=== PATIENT | female | born 1960 | race Caucasian/White ===

== ENCOUNTER 2018-11-12 06:13 | Inpatient (IN) | payer OTHER ==
[2018-11-11 10:35] VITALS: Ht 170.2 cm; Wt 72.7 kg
[2018-11-12] VITALS (28 sets, daily range): BP systolic 82–134; BP diastolic 48–74; PULSE 82–120; RESP 13–18
[~2018-11-12] VITALS: Ht 170.2 cm; Wt 72.7 kg
[2018-11-12] MEDS ORDERED: LEVO112T57 PO (06:58)
[2018-11-12] MEDS ORDERED: SEVOFLURANE 15 MIN ONE (07:00)
[2018-11-12] MEDS ORDERED: GELATIN SIZE 100 SPONGE ONE ×2 (07:39→10:03)
[2018-11-12] MEDS ORDERED: THROMBIN (BOVINE) 5,000 UNIT VIAL TP ONE ×4 (07:40→13:36)
[2018-11-12] MEDS ORDERED: BUPIVACAINE 0.5%/EPI (SDV) 30 ML INJ ONE (07:40)
[2018-11-12] MEDS ORDERED: HEPARIN 1000 UNITS/ML 10 ML INJ ONE (07:40)
[2018-11-12] MEDS ORDERED: THROMBIN 5000 UNIT VIAL TOP ONE ×2 (07:40→13:45)
[2018-11-12] MEDS ORDERED: CEFAZOLIN 1 GM INJ ONE ×2 (07:40→15:22)
--- NOTE | 2018-11-12 07:45 | HPN ---
Date/Time of Note Date/Time of Note DATE: 11/12/18 TIME: 07:45 Interval H&P Admission Note Pt. seen H&P reviewed: No system changes MARTHA JJ MD Nov 12, 2018 07:45
--- NOTE | 2018-11-12 08:03 | PREAC ---
Date/Time of Note Date/Time of Note DATE: 11/12/18 TIME: 08:00 Anesthesia Eval and Record Evaluation Time Pre-Procedure Interview DATE: 11/12/18 TIME: 08:00 Age 58 Sex female NPO: 8 hrs Preoperative diagnosis Spondylolesthesis Planned procedure anterior approach L4-5 Fusion Past Medical History Past Medical History: None Surgery & Anesthesia Issues No known issue Meds Anticoagulation: No Beta Radha within 24 hr: No Reason Beta Radha not given: Pt. not on B-Radha Reported Medications Levothyroxine Sodium* (Levothyroxine Sodium*) 112 Mcg Tablet, 112 MCG PO BEFORE BREAKFAST, #30 TAB 11/12/18 Meds reviewed: Yes Allergies Coded Allergies: No Known Allergy (Unverified , 11/11/18) Allergies Reviewed: Yes Labs/Studies Labs Reviewed: Reviewed by anesthesiologist Blood Bank Test 11/12/18 06:20 Antibody Screen NEGATIVE Blood Product Summary Counts Blood Type O POSITIVE Crossmatch Red Blood Cells test: Negative Studies: ECG Pre-procedure Exam Last vitals Vital Signs Date Temp Pulse Resp B/P (MAP) Pulse Ox O2 O2 Flow FiO2 Time Delivery Rate 11/12/18 98.1 89 17 97/74 (82) 96 Room Air 06:54 Airway: Adequate mouth opening, Adequate thyromental dist Mallampati: Mallampati II Teeth: Normal Lung: Normal Heart: Normal ASA Physical Status ASA physical status: 2 Emergency: None Planned Anesthetic General/MAC: ETT Planned Pain Management Parenteral pain med, Local by surgeon Pre-operative Attestations Prior to commencing anesthesia and surgery, the patient was re-evaluated, there was verification of: *The patient's identity *The results of appropriate recent lab work and preoperative vital signs *The above evaluation not changing prior to induction *Anesthetic plan, risk benefits, alternative and complications discussed with patient/family; questions answered; patient/family understands, accepts and wishes to proceed. JEANINE LOCKETT MD Nov 12, 2018 08:03
[2018-11-12] MEDS ORDERED: MIDAZOLAM 1 MG/ML 2 ML INJ ONE (08:08)
[2018-11-12] MEDS ORDERED: PHENYLephrine 10 MG INJ ONE (08:19)
[2018-11-12] MEDS ORDERED: morphine 10 MG INJ ONE (12:47)
[2018-11-12] MEDS ORDERED: POLYMYXIN/BACITRACIN 1L IRRIG ONE (13:39)
[2018-11-12] MEDS ORDERED: POLYMYXIN/BACITRACIN 1L IRRIG IRR ONE (13:50)
[2018-11-12] MEDS ORDERED: ROCURONIUM 50 MG INJ ONE (15:19)
[2018-11-12] MEDS ORDERED: PROPOFOL 20 ML ONE (15:19)
[2018-11-12] MEDS ORDERED: LIDOCAINE 2% (SDV) 5 ML INJ ONE (15:19)
[2018-11-12] MEDS ORDERED: METOCLOPRAMIDE 10 MG INJ ONE (15:23)
[2018-11-12] MEDS ORDERED: ONDANSETRON 4 MG INJ ONE (15:23)
[2018-11-12] MEDS ORDERED: DEXAMETHASONE 4 MG/ML 5 ML INJ ONE (15:57)
--- NOTE | 2018-11-12 16:18 | OPR ---
Date/Time of Note Date/Time of Note DATE: 11/12/18 TIME: 16:05 Operative Report Free Text/Dictation DATE OF OPERATION: 11/12/2018 PREOPERATIVE DIAGNOSES: 1. L4-5 spondylolisthesis with severe spinal stenosis with bilateral L4 and L5 radiculopathy 2. L4-5 right sided synovial facet cyst with L5 radiculopathy POSTOPERATIVE DIAGNOSES: 1. L4-5 spondylolisthesis with severe spinal stenosis with bilateral L4 and L5 radiculopathy 2. L4-5 right sided synovial facet cyst with L5 radiculopathy OPERATION PERFORMED: 1. Anterior lumbar interbody fusion L4-5 2. Placement of anterior interbody device L4-5 3. Placement of posterior spinal segmental instrumentation L4-5 4. Posterior spinal fusion L4-5 5.Bilateral L4-5 laminectomy, medial facetectomy and foraminotomy 6. Excision of right sided L4-5 synovial facet cyst 7. Interpretation of neuromonitoring SURGEON: Martha Jj MD Vascular surgeon: Vince Sparrow MD ANESTHESIA: General endotracheal ESTIMATED BLOOD LOSS: 250 cc SURGICAL INDICATION: The patient is a 58 year-old woman who presents with an i ncreasing history of back and bilateral leg pain. The patient was found to have an unstable spondylolisthesis at L4-5 with associated stenosis and a right sided L4-5 synovial facet cyst. The patient had failed conservative treatments. Risks, benefits and alternatives to an anterior and posterior spinal fusion with instrumentation and decompression with cyst excision were explained to the patient including but not exclusive of bleeding, infection, visceral injury, nerve injury, nonunion, instrumentation failure, lack of symptom relief, myocardial infarction, stroke, and pulmonary embolism, and they wished to proceed. DESCRIPTION OF TECHNIQUE: The patient was identified in the preoperative area and taken to the operating room. Rapid induction of general endotracheal anesthesia was performed. Patient wasgiven 2 grams of IV ancef for infection prophylaxis. The patient was positioned in the supine position on the operative table. All bony prominences were well padded. The patient's abdomen and left flank were prepped and draped in the usual sterile fashion. An oblique skin incision was made across the L4-L5 level by our vascular surgeon Dr. Sparrow. After the exposure was completed, I performed a L4-L5 diskectomy. The disc was incised using a sharp 15 mm blade. I then used a roberson elevator to loosen the disk material from the superior and inferior endplates. I then used a rongeur to remove the disc material and a series of curved and straight curettes to evacuate the disc space. I also used a series of pituitaries and kerrisons to ensure appropriate end plate preparation. Attention was placed to ensure removal of disk material to bleeding endplates without violation of the endplate. I then used the trial rasps to prepare and size the disc space and was able to place a 13 mm trial allograft FRA spacer with 8 degrees of lordosis. To ensure appropriate sizing of the inplant, I checked for fit and placement under C arm control and I felt the 8 degree lordotic 13 mm cage gained good lordosis and confucianist of disc height and was an appropriate fit. I also ensured appropriate reduction of the grade 1 spondylolisthesis. I then inserted the 13mm RFA cage after the trail. This cage was filled with a extra-small BMP and morselized bone allograft. A butress screw with a washer was then placed in the L4 vertebral body using the guide under fluoroscopy . Additional morselized allograft was placed around and anterior to the cage in the disc space. 2mL of tisseal was also used prior to placement of the cage in order to reduce the risk of BMP radiculitis. The wound was then irrigated. X-rays were taken to check for instruments. The wound was then closed by our vascular access surgeon in standard technique. The posterior rectus sheath and anterior rectus sheath were both repaired. Sterile dressing was then placed. Attention was then turned toward the decompression and instrumented fusion procedure from L4-L5. At this point, the patient was flipped to the prone position with all bony prominences well-padded on a John table. We ensured that the antibiotics were appropriately redosed. The lumbar spine was then prepped and draped in sterile fashion. A timeout was once again performed. Using a spinal needle and intraoperative fluoroscopy, the L4-5 level was clearly identified. The skin was injected using half percent Marcaine with epinephrine. Longitudinal midline incision was then created using a 10 blade. Further dissection through soft tissue was performed using electrocautery down to the spinous processes bilaterally. Dissection was taken down the bilateral lamina and over the facet joint capsule. A self-retaining retractor was applied. Again, intraoperative fluoroscopy confirmed the level. A rongeur was used to remove a portion of the L4 and L5 spinous processes and the interspinous ligament. We identified the interlaminar window. The microscope was brought into use for microdissection. The high-speed bur was used to thin the L4 lamina and a portion of the medial L4-5 facet bilaterally. . Kerrison rongeurs were then used to resect a the lamina, and a portion of the medial facet and the bone overlying the foramen bilaterally. Ligamentum flavum was also resected using the Kerrison rongeurs. Care was taken to protect the thecal sac throughout the decompressive procedure. A right sided synovial facet cyst was identified. This was meticulously dissected using a series of curettes and removed using a kerrison. Palpation with a ball-tip probe did not reveal any further stenosis in the central, subarticular, or foraminal areas. The bilateral L5 and L4 pedicles were palpated using a angelica to ensure a pedicle to pedicle decompression. The exiting L4 nerve root and traversing L5 nerve roots were both directly visualized and noted to be decompressed. The cephalad and caudad extent of the decompression were also confirmed using ball-tip probes and intraoperative fluoroscopy. We then focused on placement of posterior spinal segmental instrumentation from L4-5. Using intraoperative fluoroscopy, the pedicles were identified at each level. Care was taken to alter the fluoroscopic view to have a true AP and lateral at each level. Jamshidi needles were then passed down to the lateral aspect of the pedicles through stab incisions. The Jamshidi needles were malleted into the pedicles. These were also performed under EMG guidance. Care was taken to ensure that the needles did not pass the medial wall of the pedicle on the AP view prior to checking that the needle was past the posterior wall of the vertebral body. The needles were then malleted further into the vertebral bodies themselves. Guidewires were passed through the needles and the needles were removed. Taps were applied over the guidewires. Screws were then placed bilaterally into the vertebral bodies. AP and lateral views confirmed appropriate placement of the instrumentation. Attention was turned toward the posterior spinal fusion from L4-5. Rods were selected of the appropriate length and placed into the screw heads. End caps were applied and final tightening was performed using a pbmygh-pbufbjr-owxuec wrench. The exposed facet joints were decorticated using a bur. A small remaining amount of allograft was placed into the facet joints to facilitate the posterior fusion. The wound was irrigated copiously using normal saline. The fascia was then clos ed using 1 Vicryl in interrupted fashion. Subcutaneous tissue was closed using 2-0 Vicryl in interrupted fashion. A drain (medium Hemovac)was also placed in the wound. Skin was closed using a running 4-0 Monocryl stitch. The wounds were dressed using Dermabond, sterile gauze and Tegaderm. The patient was returned to the supine position. The patient was extubated immediately postoperatively and taken to the recovery room in stable condition. Patient tolerated the procedure well and left the operating room in stable condition. Procedure Date: Nov 12, 2018 Preoperative Diagnosis 1. L4-5 spondylolisthesis with severe spinal stenosis with bilateral L4 and L5 radiculopathy 2. L4-5 right sided synovial facet cyst with L5 radiculopathy Postoperative Diagnosis 1. L4-5 spondylolisthesis with severe spinal stenosis with bilateral L4 and L5 radiculopathy 2. L4-5 right sided synovial facet cyst with L5 radiculopathy Operation/Procedure Performed 1. Anterior lumbar interbody fusion L4-5 2. Placement of anterior interbody device L4-5 3. Placement of posterior spinal segmental instrumentation L4-5 4. Posterior spinal fusion L4-5 5.Bilateral L4-5 laminectomy, medial facetectomy and foraminotomy 6. Excision of right sided L4-5 synovial facet cyst 7. Interpretation of neuromonitoring Surgeon see signature line [employer] Manager (Anterior) Vascualar access surgeon: Vince Sparrow MD (Posterior): [place] Mark ([place]) Anesthesia Type: general Estimated Blood Loss: 200 - 250 ml's Transfusion none Specimen Right sided L4-5 synovial facet cyst Grafts/Implants Depuy/Synthes: 13mm 8 degree lordotic FRA cage NuVasive: 5.5 x40mm x 2 L4; 6.5 x 40mm x 2 L5; 40 mm Rods x 2 Complications none Pt Condition Post Procedure: stable Disposition: PACU Procedure Description The patient was identified in the preoperative area and taken to the operating room. Rapid induction of general endotracheal anesthesia was performed. Patient wasgiven 2 grams of IV ancef for infection prophylaxis. The patient was positioned in the supine position on the operative table. All bony prominences were well padded. The patient's abdomen and left flank were prepped and draped in the usual sterile fashion. An oblique skin incision was made across the L4-L5 level by our vascular surgeon Dr. Sparrow. After the exposure was completed, I performed a L4-L5 diskectomy. The disc was incised using a sharp 15 mm blade. I then used a roberson elevator to loosen the disk material from the superior and inferior endplates. I then used a rongeur to remove the disc material and a series of curved and straight curettes to evacuate the disc space. I also used a series of pituitaries and kerrisons to ensure appropriate end plate preparation. Attention was placed to ensure removal of disk material to bleeding endplates without violation of the endplate. I then used the trial rasps to prepare and size the disc space and was able to place a 13 mm trial allograft FRA spacer with 8 degrees of lordosis. To ensure appropriate sizing of the inplant, I checked for fit and placement under C arm control and I felt the 8 degree lordotic 13 mm cage gained good lordosis and confucianist of disc height and was an appropriate fit. I also ensured appropriate reduction of the grade 1 spondylolisthesis. I then inserted the 13mm RFA cage after the trail. This cage was filled with a extra-small BMP and morselized bone allograft. A butress screw with a washer was then placed in the L4 vertebral body using the guide under fluoroscopy . Additional morselized allograft was placed around and anterior to the cage in the disc space. 2mL of tisseal was also used prior to placement of the cage in order to reduce the risk of BMP radiculitis. The wound was then irrigated. X-rays were taken to check for instruments. The wound was then closed by our vascular access surgeon in standard technique. The posterior rectus sheath and anterior rectus sheath were both repaired. Sterile dressing was then placed. Attention was then turned toward the decompression and instrumented fusion procedure from L4-L5. At this point, the patient was flipped to the prone position with all bony prominences well-padded on a John table. We ensured that the antibiotics were appropriately redosed. The lumbar spine was then prepped and draped in sterile fashion. A timeout was once again performed. Using a spinal needle and intraoperative fluoroscopy, the L4-5 level was clearly identified. The skin was injected using half percent Marcaine with epinephrine. Longitudinal midline incision was then created using a 10 blade. Further dissection through soft tissue was performed using electrocautery down to the spinous processes bilaterally. Dissection was taken down the bilateral lamina and over the facet joint capsule. A self-retaining retractor was applied. Again, intraoperative fluoroscopy confirmed the level. A rongeur was used to remove a portion of the L4 and L5 spinous processes and the interspinous ligament. We identified the interlaminar window. The microscope was brought into use for microdissection. The high-speed bur was used to thin the L4 lamina and a portion of the medial L4-5 facet bilaterally. . Kerrison rongeurs were then used to resect a the lamina, and a portion of the medial facet and the bone overlying the foramen bilaterally. Ligamentum flavum was also resected using the Kerrison rongeurs. Care was taken to protect the thecal sac throughout the decompressive procedure. A right sided synovial facet cyst was identified. This was meticulo usly dissected using a series of curettes and removed using a kerrison. Palpation with a ball-tip probe did not reveal any further stenosis in the central, subarticular, or foraminal areas. The bilateral L5 and L4 pedicles were palpated using a angelica to ensure a pedicle to pedicle decompression. The exiting L4 nerve root and traversing L5 nerve roots were both directly visualized and noted to be decompressed. The cephalad and caudad extent of the decompression were also confirmed using ball-tip probes and intraoperative fluoroscopy. We then focused on placement of posterior spinal segmental instrumentation from L4-5. Using intraoperative fluoroscopy, the pedicles were identified at each level. Care was taken to alter the fluoroscopic view to have a true AP and lateral at each level. Jamshidi needles were then passed down to the lateral aspect of the pedicles through stab incisions. The Jamshidi needles were malleted into the pedicles. These were also performed under EMG guidance. Care was taken to ensure that the needles did not pass the medial wall of the pedicle on the AP view prior to checking that the needle was past the posterior wall of the vertebral body. The needles were then malleted further into the vertebral bodies themselves. Guidewires were passed through the needles and the needles were removed. Taps were applied over the guidewires. Screws were then placed bilaterally into the vertebral bodies. AP and lateral views confirmed appropriate placement of the instrumentation. Attention was turned toward the posterior spinal fusion from L4-5. Rods were selected of the appropriate length and placed into the screw heads. End caps were applied and final tightening was performed using a klaqsy-cxhamqm-wmwsym wrench. The exposed facet joints were decorticated using a bur. A small remaining amount of allograft was placed into the facet joints to facilitate the posterior fusion. The wound was irrigated copiously using normal saline. The fascia was then closed using 1 Vicryl in interrupted fashion. Subcutaneous tissue was closed using 2-0 Vicryl in interrupted fashion. A drain (medium Hemovac)was also placed in the wound. Skin was closed using a running 4-0 Monocryl stitch. The wounds were dressed using Dermabond, sterile gauze and Tegaderm. The patient was returned to the supine position. The patient was extubated immediately postoperatively and taken to the recovery room in stable condition. Patient tolerated the procedure well and left the operating room in stable condition. MARTHA JJ MD Nov 12, 2018 16:15
--- NOTE | 2018-11-12 16:24 | PAC ---
Date/Time of Note Date/Time of Note DATE: 11/12/18 TIME: 16:23 Post-Anesthesia Notes Post-Anesthesia Note Last documented vital signs Vital Signs Date Temp Pulse Resp B/P (MAP) Pulse Ox O2 O2 Flow FiO2 Time Delivery Rate 11/12/18 98.1 89 17 97/74 (82) 96 Room Air 06:54 Activity: WNL Respiratory function: WNL Cardiovascular function: WNL Mental status: Baseline Pain reasonably controlled: Yes Hydration appropriate: Yes Nausea/Vomiting absent: Yes Comments BP:128/65, P:102, spo2:100%, T:98,5 JEANINE LOCKETT MD Nov 12, 2018 16:24
[2018-11-12] MEDS ORDERED: FENTAnyl 50 MCG/ML VIAL IV PRN (16:30)
[2018-11-12] MEDS ORDERED: METOCLOPRAMIDE 10 MG INJ IV PRN (16:30)
[2018-11-12] MEDS ORDERED: ACETAMINOPHEN 325 MG TAB PO PRN (16:30)
[2018-11-12] MEDS ORDERED: DIPHENHYDRAMINE 50 MG INJ IV PRN (16:30)
[2018-11-12] MEDS ORDERED: NACL 0.9% 3 ML SYG IV SCH (16:30)
[2018-11-12] MEDS ORDERED: AL HYDROX/MG HYDROX/SIMETH 30 ML CUP PO PRN (16:30)
[2018-11-12] MEDS ORDERED: HYDROmorphONE 1 MG/5 ML IV SYRINGE IV PRN (16:30)
[2018-11-12] MEDS ORDERED: ONDANSETRON 4 MG INJ IV PRN (16:30)
[2018-11-12] MEDS ORDERED: LABETALOL HCL 20MG INJ IV PRN (16:30)
[2018-11-12] MEDS ORDERED: NALOXONE (0.4 MG/ML) INJ IV PRN (16:30)
[2018-11-12] MEDS ORDERED: MEPERIDINE 25 MG INJ IV PRN (16:30)
[2018-11-12] MEDS: HYDROmorphONE 1 MG/5 ML IV SYRINGE IV PRN ×2 (16:43→16:53)
[2018-11-12] MEDS: HYDROmorphONE 0.2 MG/ML PCA IV SCH ×2 (17:10→23:56)
[2018-11-12] MEDS: CEFAZOLIN 1 GM/50 ML (PMX) 50 ML IVPB SCH ×2 (17:19→23:48)
--- NOTE | 2018-11-12 17:25 | CONS ---
Assessment/Plan Assessment/Plan Problems: (1) S/P lumbar fusion Comment: stable post op in the RR.. will follow with you.. I reviewed all the preop labs, CXR and EKG... all fine (2) Hypothyroid Comment: on replacement.. will continue her thyroid meds (3) Depression Comment: was on citalopram, now off.. observe for now Consultation Date/Type/Reason Admit Date/Time Nov 12, 2018 at 06:13 Type of Consult Internal Medicine Reason for Consultation post op care Date/Time of Note DATE: 11/12/18 TIME: 17:13 Hx of Present Illness This patient is seen in the recovery room, s/p ALIF L4-L5, RP approach. she is sleepy but arousable, experiencing typical and expected post op pain. VSS. no co pr SOB.. O2 sats WNL. no hx/o HTN or cardiac disease. no recnet fevers or chills. Constitutional: other (sleepy but arousable) Cardiovascular: no complaints Gastrointestinal: no complaints Genitourinary: no complaints Past Medical History Hashimotos, and now hypothyroid, depression, chronic LBP Home Meds Reported Medications Levothyroxine Sodium* (Levothyroxine Sodium*) 112 Mcg Tablet, 112 MCG PO BEFORE BREAKFAST, #30 TAB 11/12/18 Medications Current Medications Acetaminophen/ Hydrocodone Bitart ([place] (5/325)) 1 tab Q4H PRN PO .PAIN 1-5; Start 11/12/18 at 16:30 Acetaminophen/ Hydrocodone Bitart ([place] (5/325)) 2 tab Q4H PRN PO .PAIN 6-10; Start 11/12/18 at 16:30 Cefazolin Sodium 50 ml @ 100 mls/hr Q6 IVPB ; Start 11/12/18 at 18:00; Stop 11/13/18 at 12:29 Al Hydrox/Mg Hydrox/Simethicone (Mag-Al Plus) 15 ml Q4H PRN PO .CONSTIPATION; Start 11/12/18 at 16:30 Docusate Sodium (Colace) 100 mg BID PO ; Start 11/13/18 at 09:00 Acetaminophen (Tylenol Tab) 650 mg Q4H PRN PO TEMP GREATER THAN 101F OR HUGHES; Start 11/12/18 at 16:30 IV Flush (NS 3 ml) 3 ml PER PROTOCOL IV ; Start 11/12/18 at 16:30 Hydromorphone HCl (Dilaudid APPLICATIONS SCIENTIST) Q4PCA IV ; Start 11/12/18 at 16:30 Naloxone HCl (Narcan) 0.2 mg Q2M PRN IV RR 8 BREATHS/MIN OR LESS; Start 11/12/18 at 16:30 Hydromorphone HCl (Dilaudid) 0.2 mg PACU PRN IV MILD PAIN 1-3; Start 11/12/18 at 16:30; Stop 11/12/18 at 20:00 Hydromorphone HCl (Dilaudid) 0.4 mg PACU PRN IV MOD PAIN 4-6 Last administered on 11/12/18at 16:53; Admin Dose 0.4 MG; Start 11/12/18 at 16:30; Stop 11/12/18 at 20:00 Fentanyl (Sublimaze) 25 mcg PACU ORDER PRN IV MILD PAIN 1-3; Start 11/12/18 at 16:30; Stop 11/12/18 at 20:00 Ondansetron HCl (Zofran Inj) 4 mg PACU ORDER PRN IV NAUSEA/VOMITING; Start 11/12/18 at 16:30; Stop 11/12/18 at 20:00 Metoclopramide HCl (Reglan) 10 mg PACU ORDER PRN IV NAUSEA/VOMITING Last administered on 11/12/18at 16:43; Admin Dose 10 MG; Start 11/12/18 at 16:30; Stop 11/12/18 at 20:00 Labetalol HCl (Labetalol) 5 mg PACU ORDER PRN IV HIGH BLOOD PRESSURE; Start 11/12/18 at 16:30; Stop 11/12/18 at 20:00 Meperidine HCl (Demerol) 25 mg PACU ORDER PRN IV .RIGORS Last administered on 11/12/18at 16:53; Admin Dose 25 MG; Start 11/12/18 at 16:30; Stop 11/12/18 at 20:00 Diphenhydramine HCl (Benadryl) 25 mg PACU ORDER PRN IV .PRURITUS; Start 11/12/18 at 16:30; Stop 11/12/18 at 20:00 Potassium Chloride/Dextrose/ Sod Cl 1,000 ml @ 100 mls/hr Q10H IV ; Start 11/12 at 17:00 Allergies: Coded Allergies: No Known Allergy (Unverified , 11/11/18) Past Surgical History s/p C/S s/p Hysterectomy s/p total THYx Social History Alcohol Use: none Smoking Status: Never smoker Drug Use: none Exam/Review of Systems Exam Vitals Vital Signs Date Temp Pulse Resp B/P (MAP) Pulse Ox O2 O2 Flow FiO2 Time Delivery Rate 11/12/18 98.5 16:23 11/12/18 89 17 97/74 (82) 96 Room Air 06:54 Constitutional: alert, well developed Psych: other (sleepy) Head: normocephalic, atraumatic Eyes: nl conjunctiva, EOMI ENMT: nl external ears & nose Neck: supple, non-tender Respiratory: clear to auscultation, normal air movement Cardiovascular: regular rate and rhythm, nl pulses Gastrointestinal: soft, nl liver, spleen Musculoskeletal: nl extremities to inspection Extremities: normal pulses Skin: nl turgor, rash or lesions (none) Medications Medication Current Medications Acetaminophen/ Hydrocodone Bitart ([place] (5/325)) 1 tab Q4H PRN PO .PAIN 1-5; Start 11/12/18 at 16:30 Acetaminophen/ Hydrocodone Bitart ([place] (5/325)) 2 tab Q4H PRN PO .PAIN 6-10; Start 11/12/18 at 16:30 Cefazolin Sodium 50 ml @ 100 mls/hr Q6 IVPB ; Start 11/12/18 at 18:00; Stop 11/13/18 at 12:29 Al Hydrox/Mg Hydrox/Simethicone (Mag-Al Plus) 15 ml Q4H PRN PO .CONSTIPATION; Start 11/12/18 at 16:30 Docusate Sodium (Colace) 100 mg BID PO ; Start 11/13/18 at 09:00 Acetaminophen (Tylenol Tab) 650 mg Q4H PRN PO TEMP GREATER THAN 101F OR HUGHES; Start 11/12/18 at 16:30 IV Flush (NS 3 ml) 3 ml PER PROTOCOL IV ; Start 11/12/18 at 16:30 Hydromorphone HCl (Dilaudid APPLICATIONS SCIENTIST) Q4PCA IV ; Start 11/12/18 at 16:30 Naloxone HCl (Narcan) 0.2 mg Q2M PRN IV RR 8 BREATHS/MIN OR LESS; Start 11/12/18 at 16:30 Hydromorphone HCl (Dilaudid) 0.2 mg PACU PRN IV MILD PAIN 1-3; Start 11/12/18 at 16:30; Stop 11/12/18 at 20:00 Hydromorphone HCl (Dilaudid) 0.4 mg PACU PRN IV MOD PAIN 4-6 Last administered on 11/12/18at 16:53; Admin Dose 0.4 MG; Start 11/12/18 at 16:30; Stop 11/12/18 at 20:00 Fentanyl (Sublimaze) 25 mcg PACU ORDER PRN IV MILD PAIN 1-3; Start 11/12/18 at 16:30; Stop 11/12/18 at 20:00 Ondansetron HCl (Zofran Inj) 4 mg PACU ORDER PRN IV NAUSEA/VOMITING; Start 11/12/18 at 16:30; Stop 11/12/18 at 20:00 Metoclopramide HCl (Reglan) 10 mg PACU ORDER PRN IV NAUSEA/VOMITING Last administered on 11/12/18at 16:43; Admin Dose 10 MG; Start 11/12/18 at 16:30; Stop 11/12/18 at 20:00 Labetalol HCl (Labetalol) 5 mg PACU ORDER PRN IV HIGH BLOOD PRESSURE; Start 11/12/18 at 16:30; Stop 11/12/18 at 20:00 Meperidine HCl (Demerol) 25 mg PACU ORDER PRN IV .RIGORS Last administered on 11/12/18at 16:53; Admin Dose 25 MG; Start 11/12/18 at 16:30; Stop 11/12/18 at 20:00 Diphenhydramine HCl (Benadryl) 25 mg PACU ORDER PRN IV .PRURITUS; Start 11/12/18 at 16:30; Stop 11/12/18 at 20:00 Potassium Chloride/Dextrose/ Sod Cl 1,000 ml @ 100 mls/hr Q10H IV ; Start 11/12/18 at 17:00 CASEY FIGUEROA MD Nov 12, 2018 17:25
[2018-11-12] MEDS: D5W-0.45 NACL + KCL 20 MEQ 1,000 ML IV SCH ×2 (19:20→22:00)
[2018-11-12] MEDS: ACETAMINOPHEN 1000MG/100ML IV 100 ML IVPB SCH (22:00)
--- NOTE | 2018-11-12 22:02 | OPR ---
DATE OF OPERATION: 11/12/2018 PREOPERATIVE DIAGNOSIS: Degenerative disk disease, lumbosacral spine. POSTOPERATIVE DIAGNOSIS: Degenerative disk disease, lumbosacral spine. PROCEDURE: 1. Anterior retroperitoneal exposure interbody fusion, L4-L5. 2. Left pelvic lymph node biopsy. SURGEON: Kamlesh Martínez MD COSURGEON: Martha Jj MD ANESTHESIA: General. ESTIMATED BLOOD LOSS: 200 mL CONSENT: Risks, benefits, complications, alternative therapies, high-risk nature of the operation ex plained to the patient. Consent obtained. Risks and benefits that have been explained to the patien t included but not limited to bleeding, infection, damage to bowel, damage to ureter, wound infection , wound dehiscence, DVT, PE, loss of limb, loss of life. High-risk nature of the operation fully exp lained and stressed to the patient. All questions answered. OPERATIVE TECHNIQUE: The patient was placed in supine position, prepped and draped in usual sterile fashion. I made an 8 cm incision, left lower quadrant, horizontal fashion. Incision was taken down to subcutaneous tissue which was then opened using electrocautery. Left anterior rectus sheath was o pened in the direction of the wound. Posterior rectus sheath was incised superiorly about 2 cm. Powers kwalter retractor was placed, retracting the bowel contents to the right, left rectus muscle to the l eft. I dissected the left common iliac artery and vein, external iliac artery and vein. Subsequentl y, the left iliolumbar vein was ligated using 2-0 silk sutures. Exposure for L4-L5 was obtained by l ateralizing the aorta and vena cava to the right side. We proceeded with the diskectomy and placemen t of a new cage. Please refer to Dr. Jj's dictations for the details of that operation. Left pelvic lymph node was also sent for pathological examination. After all x-rays were satisfactorily read, the wound was irrigated using antibiotic solution. Anterior rectus sheath was closed using a # 1 Vicryl suture in running fashion with interrupted sutures in the middle. The wound was irrigated a gain and closed in 2 layers of 2-0 Vicryl suture for subQ and Steri-Strips for the skin. The patient tolerated the procedure well. Dictated By: KAMLESH MARTÍNEZ MD FM/NTS Conf#: [id number] [facility]#: [id number] CC: MARTHA JJ MD;*[facility]*
[2018-11-13] VITALS: BP 99/60; PULSE 82; RESP 18
[2018-11-13] MEDS: ACETAMINOPHEN 1000MG/100ML IV 100 ML IVPB SCH ×5 (02:30→22:52)
[2018-11-13] MEDS: D5W-0.45 NACL + KCL 20 MEQ 1,000 ML IV SCH ×4 (03:00→23:00)
[2018-11-13] MEDS: LEVOTHYROXINE 112 MCG TAB PO SCH (06:07)
[2018-11-13] MEDS: CEFAZOLIN 1 GM/50 ML (PMX) 50 ML IVPB SCH ×2 (06:07→12:01)
[2018-11-13] MEDS ORDERED: LIOT5TAB3 PO (07:47)
[2018-11-13 07:49] VITALS: BP 92/52; PULSE 81; RESP 15
--- NOTE | 2018-11-13 08:48 | PN ---
Date/Time of Note Date/Time of Note DATE: 11/13/18 TIME: 08:42 Assessment/Plan VTE Prophylaxis Risk score (from Nsg)>0 risk: 7 SCD applied (from Ns): Yes SCD contraindicated: low risk/ambulating, DVT Pharmacological prophylaxis: NA/contraindicated, other Pharm contraindication: other Lines/Catheters IV Catheter Type (from Nrs): Peripheral IV Assessment/Plan Assessment/Plan 58yo F with PMHx of Hypothyroidism, Depression and Chronic Back Pain admitted for scheduled ALIF L4-L5 (11/12) POD # 1. 1. S/p ALIF L4-L5 (11/12). Management per Spine Surgery. 2. Hypothyroidism. Ok to continue Cytomel 5mg PO qday. Levothyroxine 112mcg PO qday. 3. Depression. Citalopram 10mg PO qday. Result Diagram: 11/13/188 11/13/188 Results 24hrs Laboratory Tests Test 11/13/18 04:28 11/13/18 06:53 Hemoglobin 11.8 L Hematocrit 36.9 L Sodium Level 140 Potassium Level 4.3 Chloride Level 104 Carbon Dioxide Level 26 Anion Gap 10 Blood Urea Nitrogen 10 Creatinine 0.71 Est Glomerular Filtrat Rate mL/min > 60 Glucose Level 162 Calcium Level 9.0 Lab Scanned Report REFERENCE LAB Subjective 24 Hr Interval Summary Constitutional: no complaints Eyes: no complaints ENT: no complaints Respiratory: no complaints Cardiovascular: no complaints Gastrointestinal: no complaints Musculoskeletal: other (endorses back pain at surgical site) Neurologic: no complaints Exam/Review of Systems Exam Vitals Vital Signs Date Temp Pulse Resp B/P (MAP) Pulse Ox O2 O2 Flow FiO2 Time Delivery Rate 11/13/18 97.8 81 15 92/52 (65) 97 Room Air 07:49 11/12/18 1.0 18:50 Intake and Output 11/12/18 11/12/18 11/13/18 1515:00 23:00 07:00 IntakeIntake Total 1800 ml 100 ml 900 ml OutputOutput Total 850 ml 0 ml 700 ml BalanceBalance 950 ml 100 ml 200 ml Constitutional: alert, oriented, well developed Psych: no complaints, nl mood/affect Head: normocephalic, atraumatic Eyes: nl conjunctiva ENMT: nl external ears & nose, nl lips & teeth Neck: supple, non-tender Respiratory: clear to auscultation, normal air movement Cardiovascular: regular rate and rhythm, nl pulses Gastrointestinal: soft, nl liver, spleen, non-tender Neurological: TECHNICAL SUPPORT CONSULTANT II-XII intact, nl mental status, nl speech Additional Comments Back with drain in place with serosanguinous output. Results Results 24hrs Laboratory Tests Test 11/13/18 04:28 11/13/18 06:53 Hemoglobin 11.8 L Hematocrit 36.9 L Sodium Level 140 Potassium Level 4.3 Chloride Level 104 Carbon Dioxide Level 26 Anion Gap 10 Blood Urea Nitrogen 10 Creatinine 0.71 Est Glomerular Filtrat Rate mL/min > 60 Glucose Level 162 Calcium Level 9.0 Lab Scanned Report REFERENCE LAB Medications Medication Current Medications Acetaminophen/ Hydrocodone Bitart ([place] (5/325)) 1 tab Q4H PRN PO .PAIN 1-5; Start 11/12/18 at 16:30 Acetaminophen/ Hydrocodone Bitart ([place] (5/325)) 2 tab Q4H PRN PO .PAIN 6-10; Start 11/12/18 at 16:30 Cefazolin Sodium 50 ml @ 100 mls/hr Q6 IVPB Last administered on 11/13/18at 06:07; Admin Dose 100 MLS/HR; Start 11/12/18 at 18:00; Stop 11/13/18 at 12:29 Al Hydrox/Mg Hydrox/Simethicone (Mag-Al Plus) 15 ml Q4H PRN PO .CONSTIPATION; Start 11/12/18 at 16:30 Docusate Sodium (Colace) 100 mg BID PO ; Start 11/13/18 at 09:00 Acetaminophen (Tylenol Tab) 650 mg Q4H PRN PO TEMP GREATER THAN 101F OR HUGHES; Start 11/12/18 at 16:30 IV Flush (NS 3 ml) 3 ml PER PROTOCOL IV ; Start 11/12/18 at 16:30 Hydromorphone HCl (Dilaudid RETAIL ADVERTISING ACCOUNT EXECUTIVE) Q4PCA IV Last administered on 11/12/18at 23:5 6; Admin Dose 6 MG; Start 11/12/18 at 16:30 Naloxone HCl (Narcan) 0.2 mg Q2M PRN IV RR 8 BREATHS/MIN OR LESS; Start 11/12/18 at 16:30 Potassium Chloride/Dextrose/ Sod Cl 1,000 ml @ 100 mls/hr Q10H IV Last administered on 11/12/18at 22:00; Admin Dose 100 MLS/HR; Start 11/12/18 at 17:00 Levothyroxine Sodium (Synthroid) 112 mcg DAILY@06 PO Last administered on 11/13/18at 06:07; Admin Dose 112 MCG; Start 11/13/18 at 06:00 Acetaminophen 100 ml @ 400 mls/hr Q6H IVPB Last administered on 11/13/18at 03:23; Admin Dose 400 MLS/HR; Start 11/12/18 at 20:30; Stop 11/13/18 at 20:29 NAE YOUNG MD Nov 13, 2018 08:48
--- NOTE | 2018-11-13 09:16 | CONS ---
Consultation Date/Type/Reason Admit Date/Time Nov 12, 2018 at 06:13 Initial Consult Date Date/Time of Note DATE: 11/13/18 TIME: 09:12 24 HR Interval Summary Free Text/Dictation S: 58 yo F POD#1 s/p L4-5 ALIF w/ PSIF w/ decompression. No acute events over night. Denies CP or SOB. Pain controlled w/ MOBILE DEVICE ENGINEER. Has not passed gas. Tolerating a clear liquid diet. Complains of some nausea. O: Vital Signs Date Temp Pulse Resp B/P (MAP) Pulse Ox O2 O2 Flow FiO2 Time Delivery Rate 11/13/18 97.8 81 15 92/52 (65) 97 Room Air 07:49 Gen: AAOx2, NAD Abdomen: mild distension, mild TTP. Spine: dressings (ant and post) C/D/I, 5/5 b/l TA/GS/EHL, +SILT L3-S1 A/P:58 yo F POD#1 s/p L4-5 ALIF w/ PSIF w/ decompression. 1. OOB today w/ PT (ok to wear corset until brace arrives) 2. Appreciate med recs 3. MOBILE DEVICE ENGINEER for pain 4. Regular diet once passing gas 5. Demerol x 1 Exam/Review of Systems Exam Vitals Vital Signs Date Temp Pulse Resp B/P (MAP) Pulse Ox O2 O2 Flow FiO2 Time Delivery Rate 11/13/18 97.8 81 15 92/52 (65) 97 Room Air 07:49 11/12/18 1.0 18:50 Intake and Output 11/12/18 11/12/18 11/13/18 1515:00 23:00 07:00 IntakeIntake Total 1800 ml 100 ml 900 ml OutputOutput Total 850 ml 0 ml 700 ml BalanceBalance 950 ml 100 ml 200 ml Results Result Diagram: 11/13/18 0428 11/13/18 0428 Results 24hrs Laboratory Tests Test 11/13/18 04:28 11/13/18 06:53 Hemoglobin 11.8 L Hematocrit 36.9 L Sodium Level 140 Potassium Level 4.3 Chloride Level 104 Carbon Dioxide Level 26 Anion Gap 10 Blood Urea Nitrogen 10 Creatinine 0.71 Est Glomerular Filtrat Rate mL/min > 60 Glucose Level 162 Calcium Level 9.0 Lab Scanned Report REFERENCE LAB Medications Medication Current Medications Acetaminophen/ Hydrocodone Bitart ([place] (5/325)) 1 tab Q4H PRN PO .PAIN 1-5; Start 11/12/18 at 16:30 Acetaminophen/ Hydrocodone Bitart ([place] (5/325)) 2 tab Q4H PRN PO .PAIN 6-10; Start 11/12/18 at 16:30 Cefazolin Sodium 50 ml @ 100 mls/hr Q6 IVPB Last administered on 11/13/18at 06:07; Admin Dose 100 MLS/HR; Start 11/12/18 at 18:00; Stop 11/13/18 at 12:29 Al Hydrox/Mg Hydrox/Simethicone (Mag-Al Plus) 15 ml Q4H PRN PO .CONSTIPATION; Start 11/12/18 at 16:30 Docusate Sodium (Colace) 100 mg BID PO ; Start 11/13/18 at 09:00 Acetaminophen (Tylenol Tab) 650 mg Q4H PRN PO TEMP GREATER THAN 101F OR HUGHES; Start 11/12/18 at 16:30 IV Flush (NS 3 ml) 3 ml PER PROTOCOL IV ; Start 11/12/18 at 16:30 Hydromorphone HCl (Dilaudid MOBILE DEVICE ENGINEER) Q4PCA IV Last administered on 11/12/18at 23:56; Admin Dose 6 MG; Start 11/12/18 at 16:30 Naloxone HCl (Narcan) 0.2 mg Q2M PRN IV RR 8 BREATHS/MIN OR LESS; Start 11/12/18 at 16:30 Potassium Chloride/Dextrose/ Sod Cl 1,000 ml @ 100 mls/hr Q10H IV Last administered on 11/12/18at 22:00; Admin Dose 100 MLS/HR; Start 11/12/18 at 17:00 Levothyroxine Sodium (Synthroid) 112 mcg DAILY@06 PO Last administered on 11/13/18at 06:07; Admin Dose 112 MCG; Start 11/13/18 at 06:00 Acetaminophen 100 ml @ 400 mls/hr Q6H IVPB Last administered on 11/13/18at 03:23; Admin Dose 400 MLS/HR; Start 11/12/18 at 20:30; Stop 11/13/18 at 20:29 Liothyronine Sodium (Cytomel) 5 mcg DAILY PO ; Start 2/16/19 at 10:00 Citalopram Hydrobromide (Celexa) 10 mg QHS PO ; Start 11/13/18 at 21:00 MARTHA JJ MD Nov 13, 2018 09:16
[2018-11-13] MEDS: DOCUSATE SODIUM 100 MG CAP PO SCH ×2 (09:37→20:23)
[2018-11-13] MEDS ORDERED: LIOTHYRONINE 5 MCG TAB PO SCH (10:00)
[2018-11-13] MEDS: ONDANSETRON 4 MG INJ IV PRN (10:43)
[2018-11-13] MEDS: HYDROmorphONE 0.2 MG/ML PCA IV SCH (12:21)
[2018-11-13] MEDS ORDERED: MEPERIDINE 50 MG INJ IM ONE (14:00)
[2018-11-13] MEDS: CITALOPRAM 20 MG TAB PO SCH (20:23)
[2018-11-13 20:40] VITALS: BP 92/59; PULSE 111; RESP 18
[2018-11-14 01:20] VITALS: BP 93/55; PULSE 100; RESP 20
[2018-11-14] MEDS: ACETAMINOPHEN 1000MG/100ML IV 100 ML IVPB SCH ×3 (04:35→18:31)
[2018-11-14] MEDS: ONDANSETRON 4 MG INJ IV PRN (05:26)
[2018-11-14] MEDS: LEVOTHYROXINE 112 MCG TAB PO SCH (06:00)
[2018-11-14] MEDS: HYDROCODONE/APAP (5/325) TAB PO PRN ×4 (06:06→23:17)
[2018-11-14] MEDS: D5W-0.45 NACL + KCL 20 MEQ 1,000 ML IV SCH ×4 (06:46→23:18)
[2018-11-14] MEDS: LIOTHYRONINE 5 MCG PO SCH (07:20)
[2018-11-14 08:00] VITALS: BP 110/61; PULSE 114; RESP 18
[2018-11-14] MEDS ORDERED: HYDROmorphONE 0.5 MG/0.5 ML SYG IV PRN (08:30)
--- NOTE | 2018-11-14 08:30 | CONS ---
Consultation Date/Type/Reason Admit Date/Time Nov 12, 2018 at 06:13 Initial Consult Date Date/Time of Note DATE: 11/14/18 TIME: 08:25 24 HR Interval Summary Free Text/Dictation 58 yo F POD#2 s/p L4-5 ALIF w/ post decompression and instrumented fusion. Patient w/ episodes of mild hypotension and nausea w/ IV CLINICAL PHARMACY SPECIALIST use. Started on PO [place] and IV tylenol last night. Will d/c breast surgeon today and increase IV fluids to 125 ml/hr. Will have dilaudid available prn. Will advance diet to regular once s he is passing gas and nausea resolves. Will also start robaxin 500 mg PO TID prn muscle spasms. Will rec d/c grigsby cath once cleared to do so by PT. Exam/Review of Systems Exam Vitals Vital Signs Date Temp Pulse Resp B/P (MAP) Pulse Ox O2 O2 Flow FiO2 Time Delivery Rate 11/14/18 97.8 114 18 110/61 97 08:00 (77) 11/14/18 Room Air 01:20 11/13/18 2.0 20:00 Intake and Output 11/13/18 11/13/18 11/14/18 1515:00 23:00 07:00 IntakeIntake Total 650 ml 1450 ml 1600 ml OutputOutput Total 140 ml 1500 ml BalanceBalance 510 ml 1450 ml 100 ml Results Result Diagram: 11/14/18 0743 11/13/18 0428 Results 24hrs Laboratory Tests Test 11/14/18 07:43 White Blood Count 11.3 H Red Blood Count 3.27 L Hemoglobin 9.6 L Hematocrit 30.4 L Mean Corpuscular Volume 93.0 Mean Corpuscular Hemoglobin 29.4 Mean Corpuscular Hemoglobin Concent 31.6 L Red Cell Distribution Width 13.0 Platelet Count 148 Mean Platelet Volume 12.6 H Immature Granulocytes % 0.600 H Neutrophils % 83.0 H Lymphocytes % 7.5 L Monocytes % 8.7 Eosinophils % 0.0 Basophils % 0.2 Nucleated Red Blood Cells % 0.0 Immature Granulocytes # 0.070 H Neutrophils # 9.4 H Lymphocytes # 0.9 Monocytes # 1.0 H Eosinophils # 0.0 Basophils # 0.0 Nucleated Red Blood Cells # 0.0 Medications Medication Current Medications Acetaminophen/ Hydrocodone Bitart ([place] (5/325)) 1 tab Q4H PRN PO .PAIN 1-5 Last administered on 11/14/18at 06:06; Admin Dose 1 TAB; Start 11/12/18 at 16:30 Acetaminophen/ Hydrocodone Bitart ([place] (5/325)) 2 tab Q4H PRN PO .PAIN 6-10; Start 11/12/18 at 16:30 Al Hydrox/Mg Hydrox/Simethicone (Mag-Al Plus) 15 ml Q4H PRN PO .CONSTIPATION; Start 11/12/18 at 16:30 Docusate Sodium (Colace) 100 mg BID PO Last administered on 11/13/18at 20:23; Admin Dose 100 MG; Start 11/13/18 at 09:00 Acetaminophen (Tylenol Tab) 650 mg Q4H PRN PO TEMP GREATER THAN 101F OR HUGHES; Start 11/12/18 at 16:30 IV Flush (NS 3 ml) 3 ml PER PROTOCOL IV ; Start 11/12/18 at 16:30 Hydromorphone HCl (Dilaudid CLINICAL PHARMACY SPECIALIST) Q4PCA IV Last administered on 11/13/18at 12:21; Admin Dose 6 MG; Start 11/12/18 at 16:30 Naloxone HCl (Narcan) 0.2 mg Q2M PRN IV RR 8 BREATHS/MIN OR LESS; Start 11/12/18 at 16:30 Potassium Chloride/Dextrose/ Sod Cl 1,000 ml @ 100 mls/hr Q10H IV Last administered on 11/14/18at 06:46; Admin Dose 100 MLS/HR; Start 11/12/18 at 17:00 Levothyroxine Sodium (Synthroid) 112 mcg DAILY@06 PO Last administered on 11/13/18at 06:07; Admin Dose 112 MCG; Start 11/13/18 at 06:00 Citalopram Hydrobromide (Celexa) 10 mg QHS PO Last administered on 11/13/18at 20:23; Admin Dose 10 MG; Start 11/13/18 at 21:00 Ondansetron HCl (Zofran Inj) 4 mg Q6H PRN IV NAUSEA AND/OR VOMITING Last administered on 11/14/18at 05:26; Admin Dose 4 MG; Start 11/13/18 at 10:30 Patient Own Medication 1 ea AC BREAKFAST PO ; Start 11/14/18 at 07:20 Metoclopramide HCl (Reglan) 10 mg Q8H PRN IV NAUSEA; Start 11/13/18 at 14:00 Acetaminophen 100 ml @ 400 mls/hr Q6H IVPB Last administered on 11/14/18at 04:35; Admin Dose 400 MLS/HR; Start 11/13/18 at 22:30; Stop 11/14/18 at 22:29 MARTHA JJ MD Nov 14, 2018 08:30
[2018-11-14] MEDS: METOCLOPRAMIDE 10 MG INJ IV PRN ×2 (08:44→20:22)
[2018-11-14] MEDS ORDERED: METHOCARBAMOL 500 MG TAB PO PRN (09:00)
[2018-11-14] MEDS: DOCUSATE SODIUM 100 MG CAP PO SCH ×3 (09:00→20:25)
[2018-11-14] MEDS ORDERED: METHOCARBAMOL 500 MG TAB PO SCH (09:00)
--- NOTE | 2018-11-14 09:11 | PN ---
Date/Time of Note Date/Time of Note DATE: 11/14/18 TIME: 09:09 Assessment/Plan VTE Prophylaxis Risk score (from Nsg)>0 risk: 9 SCD applied (from Nsg): Yes Pharmacological prophylaxis: other (Per primary team) Lines/Catheters IV Catheter Type (from Nrsg): Peripheral IV Urinary Cath still in place: Yes Reason Cath still needed: other (indicate) (Awaiting PT then plan to dc) Assessment/Plan Assessment/Plan 58yo F with PMHx of Hypothyroidism, Depression and Chronic Back Pain admitted for scheduled ALIF L4-L5 (11/12) POD # 2. 1. S/p ALIF L4-L5 (11/12). Management per Spine Surgery. - VENDING STAND SUPERVISOR to be dc'd and pt to use PO/IV pain meds due to hypotension. - IVF, as written. - Anti-emetics, as written. 2. Hypothyroidism. Ok to continue Cytomel 5mg PO qday. Levothyroxine 112mcg PO qday. 3. Depression. Citalopram 10mg PO qday. Result Diagram: 11/14/18 0743 11/14/18 0743 Results 24hrs Laboratory Tests Test 11/14/18 07:43 White Blood Count 11.3 H Red Blood Count 3.27 L Hemoglobin 9.6 L Hematocrit 30.4 L Mean Corpuscular Volume 93.0 Mean Corpuscular Hemoglobin 29.4 Mean Corpuscular Hemoglobin Concent 31.6 L Red Cell Distribution Width 13.0 Platelet Count 148 Mean Platelet Volume 12.6 H Immature Granulocytes % 0.600 H Neutrophils % 83.0 H Lymphocytes % 7.5 L Monocytes % 8.7 Eosinophils % 0.0 Basophils % 0.2 Nucleated Red Blood Cells % 0.0 Immature Granulocytes # 0.070 H Neutrophils # 9.4 H Lymphocytes # 0.9 Monocytes # 1.0 H Eosinophils # 0.0 Basophils # 0.0 Nucleated Red Blood Cells # 0.0 Sodium Level 139 Potassium Level 3.8 Chloride Level 106 Carbon Dioxide Level 30 Anion Gap 3 L Blood Urea Nitrogen 5 L Creatinine 0.59 Est Glomerular Filtrat Rate mL/min > 60 Glucose Level 119 # Calcium Level 8.5 Subjective 24 Hr Interval Summary Free Text/Dictation Overnight, pt with episodes of hypotension while on VENDING STAND SUPERVISOR. Started on IVF. VENDING STAND SUPERVISOR to be dc'd this AM. Pt with nausea. Awaiting flatus, BM prior to advancing diet.. Endorses pain at surgical site. Exam/Review of Systems Exam Vitals Vital Signs Date Temp Pulse Resp B/P (MAP) Pulse Ox O2 O2 Flow FiO2 Time Delivery Rate 11/14/18 97.8 114 18 110/61 97 08:00 (77) 11/14/18 Room Air 01:20 11/13/18 2.0 20:00 Intake and Output 11/13/18 11/13/18 11/14/18 1515:00 23:00 07:00 IntakeIntake Total 650 ml 1450 ml 1600 ml OutputOutput Total 140 ml 1500 ml BalanceBalance 510 ml 1450 ml 100 ml Constitutional: alert, oriented, well developed Psych: no complaints, nl mood/affect Head: normocephalic, atraumatic Eyes: nl conjunctiva, EOMI ENMT: nl external ears & nose, nl lips & teeth Neck: supple, non-tender Respiratory: clear to auscultation, normal air movement Cardiovascular: regular rate and rhythm, nl pulses Gastrointestinal: soft, non-tender Neurological: FRUIT CHECKER II-XII intact, nl mental status, nl speech (Drain in place at surgical site.) Results Results 24hrs Laboratory Tests Test 11/14/18 07:43 White Blood Count 11.3 H Red Blood Count 3.27 L Hemoglobin 9.6 L Hematocrit 30.4 L Mean Corpuscular Volume 93.0 Mean Corpuscular Hemoglobin 29.4 Mean Corpuscular Hemoglobin Concent 31.6 L Red Cell Distribution Width 13.0 Platelet Count 148 Mean Platelet Volume 12.6 H Immature Granulocytes % 0.600 H Neutrophils % 83.0 H Lymphocytes % 7.5 L Monocytes % 8.7 Eosinophils % 0.0 Basophils % 0.2 Nucleated Red Blood Cells % 0.0 Immature Granulocytes # 0.070 H Neutrophils # 9.4 H Lymphocytes # 0.9 Monocytes # 1.0 H Eosinophils # 0.0 Basophils # 0.0 Nucleated Red Blood Cells # 0.0 Sodium Level 139 Potassium Level 3.8 Chloride Level 106 Carbon Dioxide Level 30 Anion Gap 3 L Blood Urea Nitrogen 5 L Creatinine 0.59 Est Glomerular Filtrat Rate mL/min > 60 Glucose Level 119 # Calcium Level 8.5 Medications Medication Current Medications Acetaminophen/ Hydrocodone Bitart ([place] (5/325)) 1 tab Q4H PRN PO .PAIN 1-5 Last administered on 11/14/18at 06:06; Admin Dose 1 TAB; Start 11/12/18 at 16:30 Acetaminophen/ Hydrocodone Bitart ([place] (5/325)) 2 tab Q4H PRN PO .PAIN 6-10; Start 11/12/18 at 16:30 Al Hydrox/Mg Hydrox/Simethicone (Mag-Al Plus) 15 ml Q4H PRN PO .CONSTIPATION; Start 11/12/18 at 16:30 Docusate Sodium (Colace) 100 mg BID PO Last administered on 11/13/18at 20:23; Admin Dose 100 MG; Start 11/13/18 at 09:00 Acetaminophen (Tylenol Tab) 650 mg Q4H PRN PO TEMP GREATER THAN 101F OR HUGHES; Start 11/12/18 at 16:30 IV Flush (NS 3 ml) 3 ml PER PROTOCOL IV ; Start 11/12/18 at 16:30 Naloxone HCl (Narcan) 0.2 mg Q2M PRN IV RR 8 BREATHS/MIN OR LESS; Start 11/12/18 at 16:30 Potassium Chloride/Dextrose/ Sod Cl 1,000 ml @ 125 mls/hr Q8H IV Last administered on 11/14/18at 06:46; Admin Dose 100 MLS/HR; Start 11/12/18 at 17:00 Levothyroxine Sodium (Synthroid) 112 mcg DAILY@06 PO Last administered on 11/13/18 06:07; Admin Dose 112 MCG; Start 11/13/18 at 06:00 Citalopram Hydrobromide (Celexa) 10 mg QHS PO Last administered on 11/13/18at 20:23; Admin Dose 10 MG; Start 11/13/18 at 21:00 Ondansetron HCl (Zofran Inj) 4 mg Q6H PRN IV NAUSEA AND/OR VOMITING Last administered on 11/14/18 05:26; Admin Dose 4 MG; Start 11/13/18 at 10:30 Patient Own Medication 1 ea AC BREAKFAST PO ; Start 11/14/18 at 07:20 Metoclopramide HCl (Reglan) 10 mg Q8H PRN IV NAUSEA Last administered on 11/14/18at 08:44; Admin Dose 10 MG; Start 11/13/18 at 14:00 Acetaminophen 100 ml @ 400 mls/hr Q6H IVPB Last administered on 11/14/18at 04:35; Admin Dose 400 MLS/HR; Start 11/13/18 at 22:30; Stop 11/14/18 at 22:29 Hydromorphone HCl (Dilaudid) 0.5 mg Q3H PRN IV SEVERE PAIN LEVEL 7-10; Start 11/14/18 at 08:30 Methocarbamol (Robaxin) 500 mg TID PRN PO only prn muscle spams; Start 11/14/18 at 09:00 NAE YOUNG MD Nov 14, 2018 09:11
[2018-11-14 14:55] VITALS: BP 111/67; PULSE 97; RESP 18
[2018-11-14] MEDS: CITALOPRAM 20 MG TAB PO SCH ×2 (20:22→20:25)
[2018-11-14 20:25] VITALS: BP 126/73; PULSE 114; RESP 19
[2018-11-15 02:22] VITALS: BP 126/81; PULSE 108; RESP 18
[2018-11-15] MEDS: LEVOTHYROXINE 112 MCG TAB PO SCH (05:26)
[2018-11-15] MEDS: HYDROCODONE/APAP (5/325) TAB PO PRN ×5 (05:40→22:44)
--- NOTE | 2018-11-15 07:08 | CONS ---
Consultation Date/Type/Reason Admit Date/Time Nov 12, 2018 at 06:13 Initial Consult Date Date/Time of Note DATE: 11/15/18 TIME: 07:05 24 HR Interval Summary Free Text/Dictation S: 58 yo F POD#3 s/p L4-5 ALIF w/ posterior decompression w/ instrumented fusion. Patient had no acute events over night. BP has improved since d/c dilaudid GUARD CHIEF. Passing gas. Improvement in nausea. Denies CP or SOB. Drain w/ minimal output (10 mL). O: Vital Signs Date Temp Pulse Resp B/P (MAP) Pulse Ox O2 O2 Flow FiO2 Time Delivery Rate 11/15/18 98.9 108 18 126/81 96 02:22 (96) 11/14/18 Nasal 2.0 08:00 Cannula Gen: AAOx3, NAD Spine: Neurostable A/P:58 yo F POD#3 s/p L4-5 ALIF w/ posterior decompression w/ instrumented fusion. 1. Advance diet to regular once nausea improved and passing gas 2. OOB w/ LSO brace w/ PT today 3. D/C grigsby catheter once OOB today Exam/Review of Systems Exam Vitals Vital Signs Date Temp Pulse Resp B/P (MAP) Pulse Ox O2 O2 Flow FiO2 Time Delivery Rate 11/15/18 98.9 108 18 126/81 96 02:22 (96) 11/14/18 Nasal 2.0 08:00 Cannula Intake and Output 11/14/18 11/14/18 11/15/18 1515:00 23:00 07:00 IntakeIntake Total 100 ml 2275 ml 1375 ml OutputOutput Total 2005 ml 5 ml BalanceBalance 100 ml 270 ml 1370 ml Results Result Diagram: 11/15/18 0429 11/15/18 0430 Results 24hrs Laboratory Tests Test 11/14/18 07:43 11/15/18 04:29 11/15/18 04:30 White Blood Count 11.3 H 10.0 Red Blood Count 3.27 L 3.54 L Hemoglobin 9.6 L 10.6 L Hematocrit 30.4 L 33.2 L Mean Corpuscular Volume 93.0 93.8 Mean Corpuscular Hemoglobin 29.4 29.9 Mean Corpuscular Hemoglobin Concent 31.6 L 31.9 L Red Cell Distribution Width 13.0 12.8 Platelet Count 148 157 Mean Platelet Volume 12.6 H 12.5 H Immature Granulocytes % 0.600 H 0.400 Neutrophils % 83.0 H 71.4 Lymphocytes % 7.5 L 18.8 Monocytes % 8.7 8.9 Eosinophils % 0.0 0.3 Basophils % 0.2 0.2 Nucleated Red Blood Cells % 0.0 0.0 Immature Granulocytes # 0.070 H 0.040 H Neutrophils # 9.4 H 7.2 Lymphocytes # 0.9 1.9 Monocytes # 1.0 H 0.9 Eosinophils # 0.0 0.0 Basophils # 0.0 0.0 Nucleated Red Blood Cells # 0.0 0.0 Sodium Level 139 140 Potassium Level 3.8 3.8 Chloride Level 106 102 Carbon Dioxide Level 30 28 Anion Gap 3 L 10 # Blood Urea Nitrogen 5 L 5 L Creatinine 0.59 0.58 Est Glomerular Filtrat Rate mL/min > 60 > 60 Glucose Level 119 # 112 Calcium Level 8.5 8.4 Medications Medication Current Medications Acetaminophen/ Hydrocodone Bitart ([place] (5/325)) 1 tab Q4H PRN PO .PAIN 1-5 Last administered on 11/14/18at 06:06; Admin Dose 1 TAB; Start 11/12/18 at 16:30 Acetaminophen/ Hydrocodone Bitart ([place] (5/325)) 2 tab Q4H PRN PO .PAIN 6-10 Last administered on 11/15/18at 05:40; Admin Dose 2 TAB; Start 11/12/18 at 16:30 Al Hydrox/Mg Hydrox/Simethicone (Mag-Al Plus) 15 ml Q4H PRN PO .CONSTIPATION; Start 11/12/18 at 16:30 Docusate Sodium (Colace) 100 mg BID PO Last administered on 11/13/18at 20:23; Admin Dose 100 MG; Start 11/13/18 at 09:00 Acetaminophen (Tylenol Tab) 650 mg Q4H PRN PO TEMP GREATER THAN 101F OR HUGHES; Start 11/12/18 at 16:30 IV Flush (NS 3 ml) 3 ml PER PROTOCOL IV ; Start 11/12/18 at 16:30 Naloxone HCl (Narcan) 0.2 mg Q2M PRN IV RR 8 BREATHS/MIN OR LESS; Start 11/12/18 at 16:30 Potassium Chloride/Dextrose/ Sod Cl 1,000 ml @ 125 mls/hr Q8H IV Last administered on 11/14/18 23:18; Admin Dose 125 MLS/HR; Start 11/12/18 at 17:00 Levothyroxine Sodium (Synthroid) 112 mcg DAILY@06 PO Last administered on 11/15/18 05:26; Admin Dose 112 MCG; Start 11/13/18 at 06:00 Citalopram Hydrobromide (Celexa) 10 mg QHS PO Last administered on 11/13/18at 20:23; Admin Dose 10 MG; Start 11/13/18 at 21:00 Ondansetron HCl (Zofran Inj) 4 mg Q6H PRN IV NAUSEA AND/OR VOMITING Last administered on 11/14/18 05:26; Admin Dose 4 MG; Start 11/13/18 at 10:30 Patient Own Medication 1 ea AC BREAKFAST PO ; Start 11/14/18 at 07:20 Metoclopramide HCl (Reglan) 10 mg Q8H PRN IV NAUSEA Last administered on 11/14/18at 20:22; Admin Dose 10 MG; Start 11/13/18 at 14:00 Hydromorphone HCl (Dilaudid) 0.5 mg Q3H PRN IV SEVERE PAIN LEVEL 7-10; Start 11/14/18 at 08:30 Methocarbamol (Robaxin) 500 mg TID PRN PO only prn muscle spams; Start 11/14/18 at 09:00 MARTHA JJ MD Nov 15, 2018 07:08
[2018-11-15] MEDS: D5W-0.45 NACL + KCL 20 MEQ 1,000 ML IV SCH ×2 (07:14→16:53)
[2018-11-15 07:39] VITALS: BP 117/76; PULSE 104; RESP 19
--- NOTE | 2018-11-15 07:41 | CONS ---
Assessment/Plan Assessment/Plan Problems: (1) Depression Comment: on meds... stable and controlled (2) Hypothyroid Comment: on replacement (3) S/P lumbar fusion Comment: now POD #3... 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 labs /VS fine Consultation Date/Type/Reason Admit Date/Time Nov 12, 2018 at 06:13 Initial Consult Date Type of Consult Internal Medicine Date/Time of Note DATE: 11/15/18 TIME: 07:39 24 HR Interval Summary Free Text/Dictation doing better... taking in po... (+) flatus... off IV ICE BAG ASSEMBLER Exam/Review of Systems Exam Vitals Vital Signs Date Temp Pulse Resp B/P (MAP) Pulse Ox O2 O2 Flow FiO2 Time Delivery Rate 11/15/18 98.9 108 18 126/81 96 02:22 (96) 11/14/18 Nasal 2.0 08:00 Cannula Intake and Output 11/14/18 11/14/18 11/15/18 1515:00 23:00 07:00 IntakeIntake Total 100 ml 2275 ml 1375 ml OutputOutput Total 2005 ml 5 ml BalanceBalance 100 ml 270 ml 1370 ml Constitutional: alert, oriented Head: normocephalic, atraumatic Neck: supple Respiratory: clear to auscultation Cardiovascular: regular rate and rhythm Gastrointestinal: soft Extremities: normal pulses, edema (none) Results Result Diagram: 11/15/18 0429 11/15/18 0430 Results 24hrs Laboratory Tests Test 11/14/18 07:43 11/15/18 04:29 11/15/18 04:30 White Blood Count 11.3 H 10.0 Red Blood Count 3.27 L 3.54 L Hemoglobin 9.6 L 10.6 L Hematocrit 30.4 L 33.2 L Mean Corpuscular Volume 93.0 93.8 Mean Corpuscular Hemoglobin 29.4 29.9 Mean Corpuscular Hemoglobin Concent 31.6 L 31.9 L Red Cell Distribution Width 13.0 12.8 Platelet Count 148 157 Mean Platelet Volume 12.6 H 12.5 H Immature Granulocytes % 0.600 H 0.400 Neutrophils % 83.0 H 71.4 Lymphocytes % 7.5 L 18.8 Monocytes % 8.7 8.9 Eosinophils % 0.0 0.3 Basophils % 0.2 0.2 Nucleated Red Blood Cells % 0.0 0.0 Immature Granulocytes # 0.070 H 0.040 H Neutrophils # 9.4 H 7.2 Lymphocytes # 0.9 1.9 Monocytes # 1.0 H 0.9 Eosinophils # 0.0 0.0 Basophils # 0.0 0.0 Nucleated Red Blood Cells # 0.0 0.0 Sodium Level 139 140 Potassium Level 3.8 3.8 Chloride Level 106 102 Carbon Dioxide Level 30 28 Anion Gap 3 L 10 # Blood Urea Nitrogen 5 L 5 L Creatinine 0.59 0.58 Est Glomerular Filtrat Rate mL/min > 60 > 60 Glucose Level 119 # 112 Calcium Level 8.5 8.4 Medications Medication Current Medications Acetaminophen/ Hydrocodone Bitart ([place] (5/325)) 1 tab Q4H PRN PO .PAIN 1-5 Last administered on 11/14/18at 06:06; Admin Dose 1 TAB; Start 11/12/18 at 16:30 Acetaminophen/ Hydrocodone Bitart ([place] (5/325)) 2 tab Q4H PRN PO .PAIN 6-10 Last administered on 11/15/18at 05:40; Admin Dose 2 TAB; Start 11/12/18 at 16:30 Al Hydrox/Mg Hydrox/Simethicone (Mag-Al Plus) 15 ml Q4H PRN PO .CONSTIPATION; Start 11/12/18 at 16:30 Docusate Sodium (Colace) 100 mg BID PO Last administered on 11/13/18at 20:23; Admin Dose 100 MG; Start 11/13/18 at 09:00 Acetaminophen (Tylenol Tab) 650 mg Q4H PRN PO TEMP GREATER THAN 101F OR HUGHES; Start 11/12/18 at 16:30 IV Flush (NS 3 ml) 3 ml PER PROTOCOL IV ; Start 11/12/18 at 16:30 Naloxone HCl (Narcan) 0.2 mg Q2M PRN IV RR 8 BREATHS/MIN OR LESS; Start 11/12/18 at 16:30 Potassium Chloride/Dextrose/ Sod Cl 1,000 ml @ 125 mls/hr Q8H IV Last adminis tered on 11/15/18at 07:14; Admin Dose 125 MLS/HR; Start 11/12/18 at 17:00 Levothyroxine Sodium (Synthroid) 112 mcg DAILY@06 PO Last administered on 11/15/18at 05:26; Admin Dose 112 MCG; Start 11/13/18 at 06:00 Citalopram Hydrobromide (Celexa) 10 mg QHS PO Last administered on 11/13/18at 20:23; Admin Dose 10 MG; Start 11/13/18 at 21:00 Ondansetron HCl (Zofran Inj) 4 mg Q6H PRN IV NAUSEA AND/OR VOMITING Last administered on 11/14/18at 05:26; Admin Dose 4 MG; Start 11/13/18 at 10:30 Patient Own Medication 1 ea AC BREAKFAST PO ; Start 11/14/18 at 07:20 Metoclopramide HCl (Reglan) 10 mg Q8H PRN IV NAUSEA Last administered on 11/14/18at 20:22; Admin Dose 10 MG; Start 11/13/18 at 14:00 Hydromorphone HCl (Dilaudid) 0.5 mg Q3H PRN IV SEVERE PAIN LEVEL 7-10; Start 11/14/18 at 08:30 Methocarbamol (Robaxin) 500 mg TID PRN PO only prn muscle spams; Start 11/14/18 at 09:00 CASEY FIGUEROA MD Nov 15, 2018 07:41
[2018-11-15] MEDS: LIOTHYRONINE 5 MCG PO SCH (08:38)
[2018-11-15] MEDS: DOCUSATE SODIUM 100 MG CAP PO SCH ×2 (08:38→20:32)
[2018-11-15 15:51] VITALS: BP 106/66; PULSE 102; RESP 18
[2018-11-15 19:21] VITALS: BP 128/79; PULSE 102; RESP 18
[2018-11-15] MEDS: CITALOPRAM 20 MG TAB PO SCH (20:32)
[2018-11-16 01:20] VITALS: BP 132/79; PULSE 100; RESP 18
[2018-11-16] MEDS: HYDROCODONE/APAP (5/325) TAB PO PRN ×5 (04:57→22:30)
[2018-11-16] MEDS: LEVOTHYROXINE 112 MCG TAB PO SCH (05:12)
[2018-11-16 07:33] VITALS: BP 117/76; PULSE 85; RESP 18
--- NOTE | 2018-11-16 07:53 | CONS ---
Assessment/Plan Assessment/Plan Problems: (1) Depression Comment: asx om meds (2) Hypothyroid Comment: stable on replacement (3) S/P lumbar fusion Comment: doing very well, POD #4 s/p ALIF... up w PT.. alfred po's... off IV/IM analgesics.. is med OK for d/c, per ortho Consultation Date/Type/Reason Admit Date/Time Nov 12, 2018 at 06:13 Initial Consult Date Type of Consult Internal Medicine Date/Time of Note DATE: 11/16/18 TIME: 07:50 24 HR Interval Summary Free Text/Dictation doing much better.. up mult times w PT yesterday Exam/Review of Systems Exam Vitals Vital Signs Date Temp Pulse Resp B/P (MAP) Pulse Ox O2 O2 Flow FiO2 Time Delivery Rate 11/16/18 98.2 85 18 117/76 100 Room Air 07:33 (90) 11/16/18 2.0 01:20 Intake and Output 11/15/18 11/15/18 11/16/18 1414:59 22:59 06:59 IntakeIntake Total 250 ml 2300 ml OutputOutput Total 1200 ml 800 ml BalanceBalance -950 ml 1500 ml Constitutional: alert, oriented Psych: no complaints Eyes: nl conjunctiva Neck: supple Respiratory: clear to auscultation Cardiovascular: regular rate and rhythm Gastrointestinal: soft Extremities: normal pulses, edema (none) Results Result Diagram: 11/15/189 11/15/18 0430 Medications Medication Current Medications Acetaminophen/ Hydrocodone Bitart ([place] (5/325)) 1 tab Q4H PRN PO .PAIN 1-5 Last administered on 11/14/18at 06:06; Admin Dose 1 TAB; Start 11/12/18 at 16:30 Acetaminophen/ Hydrocodone Bitart ([place] (5/325)) 2 tab Q4H PRN PO .PAIN 6-10 Last administered on 11/16/18at 04:57; Admin Dose 2 TAB; Start 11/12/18 at 16:30 Al Hydrox/Mg Hydrox/Simethicone (Mag-Al Plus) 15 ml Q4H PRN PO .CONSTIPATION; Start 11/12/18 at 16:30 Docusate Sodium (Colace) 100 mg BID PO Last administered on 11/15/18at 20:32; Admin Dose 100 MG; Start 11/13/18 at 09:00 Acetaminophen (Tylenol Tab) 650 mg Q4H PRN PO TEMP GREATER THAN 101F OR HUGHES; Start 11/12/18 at 16:30 IV Flush (NS 3 ml) 3 ml PER PROTOCOL IV ; Start 11/12/18 at 16:30 Naloxone HCl (Narcan) 0.2 mg Q2M PRN IV RR 8 BREATHS/MIN OR LESS; Start 11/12/18 at 16:30 Levothyroxine Sodium (Synthroid) 112 mcg DAILY@06 PO Last administered on 11/16/18 05:12; Admin Dose 112 MCG; Start 11/13/18 at 06:00 Citalopram Hydrobromide (Celexa) 10 mg QHS PO Last administered on 11/15/18 20:32; Admin Dose 10 MG; Start 11/13/18 at 21:00 Ondansetron HCl (Zofran Inj) 4 mg Q6H PRN IV NAUSEA AND/OR VOMITING Last administered on 11/14/18 05:26; Admin Dose 4 MG; Start 11/13/18 at 10:30 Patient Own Medication 1 ea AC BREAKFAST PO Last administered on 11/15/18 08:38; Admin Dose 1 EA; Start 11/14/18 at 07:20 Metoclopramide HCl (Reglan) 10 mg Q8H PRN IV NAUSEA Last administered on 11/14/18 20:22; Admin Dose 10 MG; Start 11/13/18 at 14:00 Hydromorphone HCl (Dilaudid) 0.5 mg Q3H PRN IV SEVERE PAIN LEVEL 7-10; Start 11/14/18 at 08:30 Methocarbamol (Robaxin) 500 mg TID PRN PO only prn muscle spams; Start 11/14/18 at 09:00 CASEY FIGUEROA MD Nov 16, 2018 07:53
[2018-11-16] MEDS: LIOTHYRONINE 5 MCG PO SCH (08:41)
[2018-11-16] MEDS: DOCUSATE SODIUM 100 MG CAP PO SCH ×2 (08:41→21:27)
--- NOTE | 2018-11-16 13:04 | CONS ---
Consultation Date/Type/Reason Admit Date/Time Nov 12, 2018 at 06:13 Initial Consult Date Date/Time of Note DATE: 11/16/18 TIME: 13:03 24 HR Interval Summary Free Text/Dictation Patient reports improvement in nausea. She has been working well with PT. She had no acute events over night. We will have her worl w/ PT today and tomorrow and likely D/C her tomorrow once she is tolerating a regular diet. Exam/Review of Systems Exam Vitals Vital Signs Date Temp Pulse Resp B/P (MAP) Pulse Ox O2 O2 Flow FiO2 Time Delivery Rate 11/16/18 98.2 85 18 117/76 100 Room Air 07:33 (90) 11/16/18 2.0 01:20 Intake and Output 11/15/18 11/15/18 11/16/18 1414:59 22:59 06:59 IntakeIntake Total 250 ml 2300 ml OutputOutput Total 1200 ml 800 ml BalanceBalance -950 ml 1500 ml Results Result Diagram: 11/15/18 0429 11/15/18 0430 Medications Medication Current Medications Acetaminophen/ Hydrocodone Bitart ([place] (5/325)) 1 tab Q4H PRN PO .PAIN 1-5 Last administered on 11/16/18at 10:29; Admin Dose 1 TAB; Start 11/12/18 at 16:30 Acetaminophen/ Hydrocodone Bitart ([place] (5/325)) 2 tab Q4H PRN PO .PAIN 6-10 Last administered on 11/16/18at 04:57; Admin Dose 2 TAB; Start 11/12/18 at 16:30 Al Hydrox/Mg Hydrox/Simethicone (Mag-Al Plus) 15 ml Q4H PRN PO .CONSTIPATION; Start 11/12/18 at 16:30 Docusate Sodium (Colace) 100 mg BID PO Last administered on 11/16/18at 08:41; Admin Dose 100 MG; Start 11/13/18 at 09:00 Acetaminophen (Tylenol Tab) 650 mg Q4H PRN PO TEMP GREATER THAN 101F OR HUGHES; Start 11/12/18 at 16:30 IV Flush (NS 3 ml) 3 ml PER PROTOCOL IV ; Start 11/12/18 at 16:30 Naloxone HCl (Narcan) 0.2 mg Q2M PRN IV RR 8 BREATHS/MIN OR LESS; Start 11/12/18 at 16:30 Levothyroxine Sodium (Synthroid) 112 mcg DAILY@06 PO Last administered on 11/16/18 05:12; Admin Dose 112 MCG; Start 11/13/18 at 06:00 Citalopram Hydrobromide (Celexa) 10 mg QHS PO Last administered on 11/15/18at 20:32; Admin Dose 10 MG; Start 11/13/18 at 21:00 Ondansetron HCl (Zofran Inj) 4 mg Q6H PRN IV NAUSEA AND/OR VOMITING Last administered on 11/14/18 05:26; Admin Dose 4 MG; Start 11/13/18 at 10:30 Patient Own Medication 1 ea AC BREAKFAST PO Last administered on 11/16/18at 08:41; Admin Dose 1 EA; Start 11/14/18 at 07:20 Metoclopramide HCl (Reglan) 10 mg Q8H PRN IV NAUSEA Last administered on 11/14/18 20:22; Admin Dose 10 MG; Start 11/13/18 at 14:00 Hydromorphone HCl (Dilaudid) 0.5 mg Q3H PRN IV SEVERE PAIN LEVEL 7-10; Start 11/14/18 at 08:30 Methocarbamol (Robaxin) 500 mg TID PRN PO only prn muscle spams; Start 11/14/18 at 09:00 MARTHA JJ MD Nov 16, 2018 13:04
[2018-11-16 14:37] VITALS: BP 117/64; PULSE 88; RESP 18
[2018-11-16 19:57] VITALS: BP 110/65; PULSE 72; RESP 18
[2018-11-16 20:00] VITALS: BP 110/71; PULSE 96; RESP 17
[2018-11-16] MEDS: CITALOPRAM 20 MG TAB PO SCH (21:27)
[2018-11-17 02:00] VITALS: BP 111/68; PULSE 91; RESP 18
[2018-11-17] MEDS: HYDROCODONE/APAP (5/325) TAB PO PRN ×2 (05:45→09:45)
[2018-11-17] MEDS: LEVOTHYROXINE 112 MCG TAB PO SCH (05:45)
[2018-11-17 07:38] VITALS: BP 118/76; PULSE 86; RESP 18
--- NOTE | 2018-11-17 08:16 | PDOCDIS ---
Discharge Instructions CONDITION [id number] Patient Condition: [id number] Good HOME CARE INSTRUCTIONS: [id number] Diet Instructions: [id number] Regular ACTIVITY: [id number] Activity Restrictions: [id number] Slowly Increase Activity Rest between Activity Avoid heavy lifting Avoid Heavy Housework [id number] Bathing Restrictions: [id number] Shower FOLLOW UP/APPOINTMENTS Follow-up Plan Follow-up in 1-2 weeks w/ MARTHA Garcias MD Nov 17, 2018 08:15
[2018-11-17] MEDS: DOCUSATE SODIUM 100 MG CAP PO SCH (08:57)
[2018-11-17] MEDS: LIOTHYRONINE 5 MCG PO SCH (08:57)
== END 2018-11-17 12:03 | disposition home or self-care (01) | DRG 455 ==
LOC: REC 06:13 → MS1 18:49
PROVIDERS: ADMIT Orthopaedic Surgery; ATTEND Orthopaedic Surgery
PROC: 0SG00K1 Fusion of Lumbar Vertebral Joint with Nonautologous Tissue Substitute, Posterior Approach, Posterior Column, Open Approach (ICD-10-PCS; 2018-11-12)
PROC: 0SB00ZZ Excision of Lumbar Vertebral Joint, Open Approach (ICD-10-PCS; 2018-11-12)
PROC: 0SB20ZZ Excision of Lumbar Vertebral Disc, Open Approach (ICD-10-PCS; 2018-11-12)
PROC: 0SG00A0 Fusion of Lumbar Vertebral Joint with Interbody Fusion Device, Anterior Approach, Anterior Column, Open Approach (ICD-10-PCS; principal; 2018-11-12 08:00)
DX: M43.16 Spondylolisthesis, lumbar region (principal); M54.16 Radiculopathy, lumbar region; M71.38 Other bursal cyst, other site; E03.9 Hypothyroidism, unspecified; F32.9 Major depressive disorder, single episode, unspecified; M48.061 Spinal stenosis, lumbar region without neurogenic claudication
CPT/HCPCS: 72100; 72110; 80048; 85014; 85018; 85025; 86850; 86900; 86901; 86920; 87086; 88304; 88307; 97110; 97116; 97161; 97530; C1762; J0131; J0690; J1100; J1170; J1644; J2175; J2250; J2270; J2405; J2765; J3010; J3480; L0639; L8699